=== PATIENT | female | born 1985 | race Caucasian/White ===

== ENCOUNTER 2017-03-16 17:12 | Emergency (ER) | payer MEDICAID ==
[~2017-03-16] VITALS: Ht 162.6 cm; Wt 50.8 kg
[2017-03-16 17:57] LABS: microscopic required? NO
[2017-03-16 18:00] LABS: BASOPHIL % 0.5 % (0-2); PLATELET COUNT 316 x10^3mcL (130-400)
[2017-03-16 18:06] LABS: RED CELL DISTRIBUTION WIDTH 14.9 % (11.5-14.5)
[2017-03-16 18:09] LABS: CALCIUM 9.2 mg/dL (8.5-10.1); CARBON DIOXIDE 24.4 mmol/L (21-32); CHLORIDE SERUM 103 mmol/L (98-107); CREATININE SERUM 1.1 mg/dL (0.6-1.0); GFR1 > 60 mL/min; GLUCOSE SERUM 131 mg/dL (74-106); POTASSIUM SERUM 3.6 mmol/L (3.5-5.1); SODIUM SERUM 139 mmol/L (136-145)
[2017-03-16 18:10] LABS: UA SPECIFIC GRAVITY 1.015 (1.005-1.035); urine erythrocyte NEGATIVE (NEGATIVE)
[2017-03-16 18:13] LABS: ALBUMIN 4.1 g/dL (3.4-5.0); ALKALINE PHOSPHATASE 86 U/L (46-116); ALT/SGPT 19 U/L (14-59); AST/SGOT 18 U/L (15-37); BILIRUBIN TOTAL 0.36 mg/dL (0.20-1.00)
[2017-03-16 18:24] LABS: T4(THYROXINE) 10.9 ug/dL (4.7-13.3)
[2017-03-16 18:51] LABS: AMPHETAMINE QUAL UR POSITIVE (NEG <=1000)
[2017-03-16 21:01] VITALS: BP 129/93
== END 2017-03-16 21:43 | disposition home or self-care (01) ==
LOC: ED 17:12
PROVIDERS: Emergency Medicine
DX: F15.10 Other stimulant abuse, uncomplicated (principal); R00.0 Tachycardia, unspecified; R07.89 Other chest pain
CPT/HCPCS: 83880; J1885; J2060; J7030; Q0092